=== PATIENT | female | born 1995 | race Caucasian/White ===

== ENCOUNTER 2023-05-18 18:30 | Emergency (ER) | payer OTHER, SELFPAY ==
[2023-05-18 18:35] VITALS: BP 130/85; PULSE 97; RESP 15; TEMP 37.2; O2SAT 98
--- NOTE | 2023-05-18 18:48 | ED_ITS ---
HPI - General Adult General Chief complaint: Nausea/Vomiting/Diarrhea Stated complaint: NAUSEA AND VOMITTING, LETHARGY Time Seen by Provider: 05/18/23 18:40 Source: patient Mode of arrival: walk-in Limitations: no limitations History of Present Illness HPI narrative: 27 year old female presents to the ED for cough, sinus congestion/drainage, fatigue, N/V. Onset was a few days ago. Denies fever, SOB, diarrhea, urinary sx. She has hx GERD. She has been out of her omeprazole for the past 2 months. Denies chance of . Reports two episodes of emesis today. Related Data Previous Rx's Medication Instructions Recorded benzonatate 200 mg capsule 200 mg PO TID PRN cough #21 caps 05/18/23 omeprazole 20 mg capsule,delayed 20 mg PO DAILY #14 caps 05/18/23 release ondansetron 4 mg disintegrating 4 mg PO Q8H PRN nausea and 05/18/23 tablet vomiting 4 days #16 tabs Allergies Allergy/AdvReac Type Severity Reaction Status Date / Time No Known Drug Allergies Allergy Verified 05/18/23 18:38 Review of Systems ROS Constitutional Denies: fever or chills Ears, nose, mouth, and throat Reports: nasal discharge and nasal congestion; Denies: throat pain, neck pain, throat swelling, difficulty swallowing, ear pain or ear discharge Cardiovascular Denies: chest pain Respiratory Reports: cough; Denies: shortness of breath Gastrointestinal Reports: nausea, vomiting and heartburn; Denies: abdominal pain or diarrhea Musculoskeletal Denies: back pain or neck pain Integumentary/Breast Denies: rash Neurological Denies: headache PFSH PFSH Social History Smoking status: Current every day smoker Exam Constitutional Vital Signs, click to edit/add: Last Vital Signs Temp 98.9 F 05/18/23 18:35 Pulse 57 L 05/18/23 20:24 Resp 15 05/18/23 20:24 BP 118/65 05/18/23 20:24 Pulse Ox 99 05/18/23 20:24 O2 Del Method Room Air 05/18/23 20:24 Common normals: no apparent distress and oriented x3 General appearance: cooperative; not in distress HENMT Common normals: normocephalic Nose: external nose normal and nasal discharge External ear: external ears normal External auditory canal: EACs normal Tympanic membrane: TMs normal bilaterally Mouth: lip normal and tongue normal; no muffled voice Throat: uvula midline and postnasal drainage Eye Common normals: conjunctivae normal and no scleral icterus Neck & C-Spine Common normals: supple Chest Chest: symmetrical chest wall rise Respiratory Common normals: normal respiratory effort Effort & inspection: able to speak in complete sentences and symmetric chest movement Cardio Common normals: regular rate and regular rhythm GI Common normals: Normal to inspection, nondistended, normoactive bowel sounds present, soft to palpation and non-tender Auscultation: normoactive bowel sounds Neuro Common normals: oriented x3 Sensorium/orientation: awake and alert Speech: speech normal Gait (neuro): normal gait Course Vital Signs Vital signs: Vital Signs Temperature 98.9 F 05/18/23 18:35 Pulse Rate 97 H 05/18/23 18:35 Respiratory Rate 15 05/18/23 18:35 Blood Pressure 130/85 05/18/23 18:35 Pulse Oximetry 98 05/18/23 18:35 Oxygen Delivery Method Room Air 05/18/23 18:35 Temperature 98.9 F 05/18/23 18:35 Pulse Rate 57 L 05/18/23 20:24 Respiratory Rate 15 05/18/23 20:24 Blood Pressure 118/65 05/18/23 20:24 Pulse Oximetry 99 05/18/23 20:24 Oxygen Delivery Method Room Air 05/18/23 20:24 Medical Decision Making MDM Narrative Medical decision making narrative: Covid-19 was negative. Urinalysis was unremarkable. She reported she has been out of her omeprazole for the past 2 months. Prescriptions were provided for omeprazole, Zofran, and tessalon perles. Follow up with pcp for a recheck, further evaluation and treatment. Return precautions were discussed. Medical Records Medical records reviewed: Yes I reviewed the patient's medical records Lab Data Lab results reviewed: Yes I reviewed the patient's lab results Labs: Lab Results 05/18/23 Range/Units 19:13 Urine Color Yellow (YELLOW) Urine Clarity Clear (CLEAR) Urine pH 6.0 (5.0-9.0) Ur Specific [place] >=1.030 A (1.005-1.025) Urine Protein Negative (NEG/TRACE) mg/dL Urine Glucose (UA) Negative (NEGATIVE) mg/dL Urine Ketones 15 A (NEGATIVE) mg/dL Urine Occult Blood Negative (NEGATIVE) Urine Nitrite Negative (NEGATIVE) Urine Bilirubin Small A (NEGATIVE) Urine Urobilinogen 0.2 (0.2-1.0) EU/dL Ur Leukocyte Esterase Trace A (NEGATIVE) Urine RBC 2-5 A (0-2) #/HPF Urine WBC 2-5 A (NONE SEEN) #/HPF Ur Squamous Epith Cells Moderate A (NONE/RARE) #/LPF Urine Crystals None seen (None Seen) #/HPF Urine Bacteria Trace A (NONE SEEN) #/HPF Urine Casts None seen (NONE SEEN) #/LPF Urine Mucus Moderate A (NONE SEEN) Ur Culture Indicated? No Urine HCG, Qual Negative (NEGATIVE) SARS-CoV-2 (PCR) Negative (NEGATIVE) Discharge Plan Discharge Chief Complaint: Nausea/Vomiting/Diarrhea Clinical Impression: Encounter for medication refill, Viral illness Patient Disposition: Home, Self-Care Time of Disposition Decision: 20:16 Condition: Good Mode of Transportation: Private Vehicle Prescriptions / Home Meds: New ondansetron 4 mg tablet,disintegrating 4 mg PO Q8H PRN (Reason: nausea and vomiting) 4 Days Qty: 16 0RF omeprazole 20 mg capsule,delayed release(DR/EC) 20 mg PO DAILY Qty: 14 0RF benzonatate 200 mg capsule 200 mg PO TID PRN (Reason: cough) Qty: 21 0RF Instructions: Upper Respiratory Infection (ED), GERD (Gastroesophageal Reflux Disease) (ED), Viral Syndrome (ED) Additional Instructions: Follow up with your primary care provider within the next few days for a recheck. Return to the ER if your condition worsens. Stand Alone Forms: Portal Instructions Referrals: Physician,Non-Staff, MD [Primary Care Provider] - As soon as possible Discharge Date/Time: 05/18/23 20:25
[2023-05-18] MEDS: lidocaine HCL 15 ML, MAG HYDROX/ALUMINUM HYD/SIMETH 30 ML, HYOSCYAMINE SULFATE 0.25 MG PO (18:56)
[2023-05-18] MEDS: ONDANSETRON 4 MG RAPDIS TABLET SL (18:58)
[2023-05-18 19:23] LABS: Bilirubin Urine SMALL (NEGATIVE); Blood Urine NEGATIVE (NEGATIVE); Clarity Urine CLEAR (CLEAR); Color Urine YELLOW (YELLOW); Glucose Urine UA NEGATIVE (NEGATIVE); Ketones Urine 15 mg/dL (NEGATIVE); Leukocyte Esterase Urine TRACE (NEGATIVE); Nitrite Urine NEGATIVE (NEGATIVE); Protein Urine NEGATIVE (NEG/TRACE); Specific Gravity Urine >=1.030 (1.005-1.025); Urobilinogen Urine 0.2 EU/dL (0.2-1.0)
[2023-05-18 19:30] LABS: Urine Microscopic Indicated YES
[2023-05-18 19:47] LABS: Bacteria Urine TRACE #/HPF (NONE SEEN)
[2023-05-18 19:48] LABS: Cast Seen? NONE SEEN #/LPF (NONE SEEN); Crystals Seen? None Seen #/HPF (None Seen); Mucus Urine MODERATE (NONE SEEN); Squamous Epithelial Cell Urine MODERATE #/LPF (NONE/RARE); Urine Culture Indicated NO
[2023-05-18 19:57] LABS: SARS-CoV-2 Ag NEGATIVE (NEGATIVE)
[2023-05-18 20:07] LABS: HCG Qualitative Urine* NEGATIVE (NEGATIVE)
[2023-05-18 20:24] VITALS: BP 118/65; PULSE 57; RESP 15; O2SAT 99
[2023-05-20 15:56] LABS: SARS-CoV-2 NAA INVALID (NOT DETECTE)
== END 2023-05-18 20:25 | disposition home or self-care (01) ==
PROVIDERS: Nurse Practitioner Family; Emergency Provider Emergency Medicine
DX: B34.9 Viral infection, unspecified (principal); Z76.0 Encounter for issue of repeat prescription; Z79.899 Other long term (current) drug therapy; K21.9 Gastro-esophageal reflux disease without esophagitis; F17.210 Nicotine dependence, cigarettes, uncomplicated; Z20.822 Contact with and (suspected) exposure to COVID-19
CPT/HCPCS: 81001; 84703; 87635; 87811; 99284

== ENCOUNTER 2024-01-14 22:31 | Emergency (ER) | payer OTHER, SELFPAY ==
--- OUTSIDE RECORDS SUMMARY | 2024-01-14 22:36 | XMS_ITS | CCD ---
Author Organization [facility] Inform ion Partnership [facility] Care Team Providers Care Cloth Doffer Name Role Phone Cricket Desir Unavailable DivinaKina velazquez Unavailable Courtney Gibbons Unavailable Kalani Pardo Attending Unavailable REQUEST, DR LI LISTED Primary Care Unavaila ble ELIJAH, DR KAYLEIGH Crowder Admitting Unavailabl e REINECK, DR KAYLEIGH Crowder Attending Unavailabl e REINECK, DR KAYLEIGH Crowder Consulting Unavailabl e REQUESTDR LI LISTED Primary Care Unavaila ble ELIJAH, DR KAYLEIGH Crowder Admitting Unavailabl e REINECK, DR KAYLEIGH Crowder Attending Unavailabl e REINECK, DR KAYLEIGH Crowder Consulting Unavailabl e Allergies Allergy Classification Reported Allergen(s) Allergy Type Date of Onset Reaction(s) Facility (5 sources) almond allergenic extract Drug Allergy Unknown [facility] Other Medications Current Medications Medication Drug Class(es) Dates Sig (Normalized) Sig (Original) cephalexin 500 mg oral capsule (1 source) Cephalosporin Antibacterial Start: 06-04-2022 take 1 capsule by mouth every eight hours Cephalexin 500 MG 1 capsule Orally three times a day for 10 day(s) May, Active cetirizine hydrochloride 10 mg oral tablet (1 source) Histamine-1 Receptor Antagonist Start: 03-16-2022 take 1 tablet by mouth once daily Cetirizine HCl 10 MG 1 tablet Orally Once a day for 30 day(s) Feb, Active Etonogestrel (5 sources) Progestin Nexplanon Active hydrocortisone 10 mg/ml / neomycin 3.5 mg/ml / polymyxin b [id number] unt/ml otic suspension (1 source) Aminoglycoside Antibacterial, Polymyxin-class Antibacterial, Corticosteroid Start: 06-04-2022 Neomycin-Polymyx in-HC [id number] 3 drps right ear Three times a day for 7 days May, Active hydrOXYzine hydrochloride 10 mg oral tablet (3 sources) Antihistamine Start: 06-21-2022 take 1 tablet by mouth twice daily as needed hydrOXYzine HCl 10 MG 1 tablet as needed Orally twice daily for 30 day(s) May, Active omeprazole 20 mg delayed release oral capsule (3 sources) Proton Pump Inhibitor Start: 06-21-2022 take 1 capsule by mouth once daily Omeprazole 20 MG 1 capsule 30 minutes before morning meal Orally Once a day May, Active ondansetron 4 mg oral tablet (1 source) Serotonin-3 Receptor Antagonist Start: 03-16-2022 take 1 tablet by mouth every twelve hours Ondansetron HCl 4 MG 1 tablet Orally BID for 10 day(s) Feb, Active 24 hr divalproex sodium 250 mg extended release oral tablet (2 sources) Mood Stabilizer, Anti-epileptic Agent Start: 08-09-2022 take 1 tablet by mouth every twenty-four hours Divalproex Sodium ER 250 MG 1 tablet Orally Once a day for 30 day(s) Jul, Active 24 hr venlafaxine 75 mg extended release oral capsule (3 sources) Serotonin and Norepinephrine Reuptake Inhibitor Start: 06-21-2022 take 1 capsule by mouth every twenty-four hours Effexor XR 75 MG 1 capsule with food Orally Once a day for 30 day(s) May, Active Start: 06-21-2022 take 1 capsule by [facility] every twenty-four hours Effexor XR 37.5 MG 1 capsule with food Orally Once a day for 30 day(s) May, Active Completed/Discontinued Medications Medication Drug Class(es) Dates Sig (Normalized) Sig (Original) amoxicillin 875 mg oral tablet (1 source) Penicillin-class Antibacterial Start: 02-19-2020 take 1 tablet by mouth every twelve hours Amoxicillin 875 MG 1 tablet Orally every 12 hrs for 7 days Jan, Not-Taking Cortisporin 3.3-3-10-0.5 mg/ml (1 source) Start: 07-29-2020 Cortisporin 3.3-3-10-0.5 mg/ml 4 drops into affected ear Otic Three times a day for 5 days Jul, Not-Taking fluconazole 150 mg oral tablet (1 source) Azole Antifungal Start: 07-29-2020 Diflucan 150 MG 1 tablet Orally take 1 tablet now then 1 tablet in 7 days for 2 days Jul, Not-Taking methylPREDNISolone 4 mg oral tablet (1 source) Corticosteroid Start: 07-29-2020 Medrol (Gavino) 4 MG half of daily dose in the morning with food and the rest at night with food Orally Jul, Not-Taking naproxen 500 mg oral tablet (1 source) Nonsteroidal Anti-inflammatory Drug Start: 02-19-2020 take 1 tablet by mouth every twelve hours at mealtime as needed Naproxen 500 MG 1 tablet with food or milk as needed Orally every 12 hrs for 10 days Jan, Not-Taking Problems Active Problems Problem Classification Problem Date Documented Date Episodic/Chronic Anxiety disorders (10 sources) Generalized anxiety disorder; Translations: [Generalized anxiety disorder] Chronic Esophageal disorders (5 sources) Gastroesophageal reflux disease without esophagitis; Translations: [Gastro-esophageal reflux disease without esophagitis] Chronic Fever of unknown origin (1 source) Fever, unspecified; Translations: [FEVER UNSPECIFIED] Onset: 11-08-2022 Episodic Other ear and sense organ disorders (1 source) Unspecified otitis externa, right ear; Translations: [UNS OTITIS EXTERNA RT EAR] Onset: 11-08-2022 Chronic Other ear and sense organ disorders (1 source) Unspecified acute noninfective otitis externa, right ear Episodic Other ear and sense organ disorders (3 sources) Otalgia, right ear; Translations: [OTALGIA RIGHT EAR] Onset: 11-06-2022 Episodic Other upper respiratory disease (5 sources) Seasonal allergic rhinitis; Translations: [Other seasonal allergic rhinitis] Chronic Other upper respiratory disease (1 source) Other seasonal allergic rhinitis Onset: 03-16-2022 Resolved: 03-16-2022 Chronic Otitis media and related conditions (1 source) Otitis media, unspecified, right ear Episodic Substance-related disorders (1 source) Nicotine dependence, cigarettes, uncomplicated; Translations: [NICOTINE DEPEND CIGARETTES UNCOMP] Onset: 11-24-2021 Chronic Past or Other Problems Problem Classification Problem Date Documented Da te Episodic/Chronic Immunizations and screening for infectious disease (1 source) Contact with and (suspected) exposure to unspecified communicable disease Onset: 03-16-2022 Resolved: 03-16-2022 Episodic Nausea and vomiting (1 source) Nausea Onset: 03-16-2022 Resolved: 03-16-2022 Episodic Other skin disorders (3 sources) Localized swelling, mass and lump, head; Translations: [LOCALIZED SWELLING MASS AND LUMP HEAD] Onset: 11-23-2021 Episodic Other skin disorders (1 source) Sebaceous cyst; Translations: [SEBACEOUS CYST] Onset: 11-24-2021 Episodic Results Test Name Value Interpretation Reference Range Facil ity XR toe LT 5th digiton 2020 XR toe LT 5th digit [facility] [place] [address] [place] [address] XRay Report Signed Patient: Ashley Moser MR#: [id number] : 1995 Acct:[id number] Age/Sex: 25 / F ADM Date: 10/29/20 Loc: XDUCLY Room: Type: [facility] Attending Dr: Kathleen Richey APRN, SECOND OPERATOR-C Ordering Provider: Kathleen Richey APRN Date of Service: 10/29/20 XR/XR toe LT 5th digit: Injury of left foot, initial encounter Copies to: Kathleen Richey APRN CLINICAL HISTORY: Injured left foot this morning, stepping over a baby gate and patient struck her foot on the gate. Pain and bruising over the little toe. XR toe LT 5th digit COMPARISON: None FINDINGS: AP, lateral and oblique views of the left little toe were obtained. There is a nondisplaced, slightly buckled fracture to the distal diametaphysis of the proximal phalanx of the little toe. The remaining bony structures are intact. Soft tissue swelling is shown at the base of the little toe. No radiopaque foreign body is noted. XR/XR toe LT 5th digit IMPRESSION: A NONDISPLACED FRACTURE AT THE DISTAL PORTION OF THE PROXIMAL PHALANX OF THE LITTLE TOE. Impression dictated by: Kane Gregorio M.D.10/29/2020 12:18 PM Dictation Location: [place] [address] Transcribed By: [facility] 10/29/20 1218 Dictated By: Kane Gregorio MD 10/29/20 1214 Signed By: 10/29/20 1218 [facility] Vital Signs Date Time Vital Sign Value Performing Clinician Facility 08-09-2022 14:00-0500 Body height 165.1 cm Courtney Schmidtault Other [facility] Other 08-09-2022 14:00-0500 Body mass index (BMI) [Ratio] 27.95 kg/m2 Courtney Edwige Other [facility] Other 08-09-2022 14:00-0500 Body temperature 97.7 [degF] Courtney Edwige Other [facility] Other 08-09-2022 14:00-0500 Body weight 76.2 kg Courtney Edwige Other [facility] Other 08-09-2022 14:00-0500 Diastolic blood pressure 72 mm[Hg] Courtney Edwige Other [facility] Other 08-09-2022 14:00-0500 Respiratory rate 18 /min Courtney Edwige Other [facility] Other 08-09-2022 14:00-0500 SaO2% (BldA) [Mass fraction] 98 % Courtney Edwige Other [facility] Other 08-09-2022 14:00-0500 Systolic blood pressure 117 mm[Hg] Courtney Edwige Other [facility] Other 07-19-2022 16:00-0500 Body height 165.1 cm Courtney Edwige Other [facility] Other 07-19-2022 16:00-0500 Body mass index (BMI) [Ratio] 27.95 kg/m2 Courtney Gibbons Other [facility] Other 07-19-2022 16:00-0500 Body temperature 97.7 [degF] Courtney Gibbons Other [facility] Other 07-19-2022 16:00-0500 Body weight 76.2 kg Courtney Gibbons Other [facility] Other 07-19-2022 16:00-0500 Diastolic blood pressure 68 mm[Hg] Courtney Gibbons Other [facility] Other 07-19-2022 16:00-0500 Respiratory rate 18 /min Courtney Gibbons Other [facility] Other 07-19-2022 16:00-0500 SaO2% (BldA) [Mass fraction] 99 % Courtney Gibbons Other [facility] Other 07-19-2022 16:00-0500 Systolic blood pressure 127 mm[Hg] Courtney Gibbons Other [facility] Other 06-21-2022 12:30-0500 Body height 165.1 cm Courtney Gibbons Other [facility] Other 06-21-2022 12:30-0500 Body mass index (BMI) [Ratio] 27.79 kg/m2 Courtney Gibbons Other [facility] Other 06-21-2022 12:30-0500 Body temperature 97.1 [degF] Courtney Schmidtault Other [facility] Other 06-21-2022 12:30-0500 Body weight 75.75 kg Courtney Gibbons Other [facility] Other 06-21-2022 12:30-0500 Diastolic blood pressure 84 mm[Hg] Courtney Gibbons Other [facility] Other 06-21-2022 12:30-0500 Respiratory rate 18 /min Courtney Gibbons Other [facility] Other 06-21-2022 12:30-0500 SaO2% (BldA) [Mass fraction] 97 % Courtney Gibbons Other [facility] Other 06-21-2022 12:30-0500 Systolic blood pressure 131 mm[Hg] Courtney Gibbons Other [facility] Other 06-04-2022 14:35-0500 Body height 165.1 cm Kina Gallegomond Other [facility] Other 06-04-2022 14:35-0500 Body mass index (BMI) [Ratio] 28.12 kg/m2 Kina Murcia Other [facility] Other 06-04-2022 14:35-0500 Body temperature 98 [degF] Kina Divina Other [facility] Other 06-04-2022 14:35-0500 Body weight 76.66 kg Kina Divina Other [facility] Other 06-04-2022 14:35-0500 Diastolic blood pressure 81 mm[Hg] Kina Murcia Other [facility] Other 06-04-2022 14:35-0500 Respiratory rate 18 /min Kina Murcia Other [facility] Other 06-04-2022 14:35-0500 SaO2% (BldA) [Mass fraction] 100 % Kina Murcia Other [facility] Other 06-04-2022 14:35-0500 Systolic blood pressure 125 mm[Hg] Kina Murcia Other [facility] Other 03-16-2022 14:15-0400 Body height 165.1 cm Cricket Desir Other [facility] Other 03-16-2022 14:15-0400 Body mass index (BMI) [Ratio] 29.12 kg/m2 Cricket Desir Other [facility] Other 03-16-2022 14:15-0400 Body temperature 99.1 [degF] Cricket Desir Other [facility] Other 03-16-2022 14:15-0400 Body weight 79.38 kg Cricket Desir Other [facility] Other 03-16-2022 14:15-0400 Respiratory rate 18 /min Cricket Desir Other [facility] Other 03-16-2022 14:15-0400 SaO2% (BldA) [Mass fraction] 97 % Cricket Desir Other [facility] Other Encounters Encounter Date Encounter Type Care Provider Facility Start: 11-06-2022 End: 11-06-2022 ambulatory Kalani Pardo Facility:[facility] Start: 08-09-2022 End: 08-09-2022 ambulatory Courtney Gibbons Other [facility] Other Start: 08-09-2022 Office outpatient visit 15 minutes Courtney Edwige [facility] Start: 07-19-2022 End: 07-19-2022 ambulatory Courtney Edwige Other [facility] Other Start: 07-19-2022 Office outpatient visit 15 minutes Courtney Edwige [facility] Start: 06-21-2022 End: 06-21-2022 ambulatory Courtneymarylu Gibbons Other [facility] Other Start: 06-21-2022 Office outpatient visit 15 minutes Courtney Edwige [facility] Start: 06-04-2022 End: 06-04-2022 ambulatory Kina Divina Other [facility] Other Start: 06-04-2022 Office outpatient visit 15 minutes Kina Murcia [facility] Start: 03-16-2022 End: 03-16-2022 ambulatory Cricket Desir Other [facility] Other Start: 03-16-2022 Office outpatient visit 15 minutes Cricket Desir [facility] Start: 11-23-2021 End: 11-23-[address] NONE LISTED REQUEST Facility: Payers Date Payer Category Payer Medicaid [id number] 2. [id number] 2017 Private Health Insurance 2017 Unknown [id number] 1995 Unknown [id number] 1996 Unknown [id number] 1974 Unknown [id number] 1959 Self-pay Social History Date Type Detail Facility Unknown if ever smoked [facility] Other Sex Assigned At Sex Assigned At Bir th [facility] Other Evaluation note 08-09-2022 Note Date & Type Note Facility 08-09-2022 Evaluation note Encounter Date Diagnosis Assessment Notes Jul, MIRA (generalize d anxiety disorder) (ICD-10 - F41.1) increased medication as discussed. Jul, PTSD (post-traum atic stress disorder) (ICD-10 - F43.10) Start taking medication tonight. FOllow up in 1 month. [facility] Other Evaluation note 07-19-2022 Note Date & Type Note Facility 07-19-2022 Evaluation note Encounter Date Diagnosis Assessment Notes Jun, MIRA (generalized anxiety disorder) (ICD-10 - F41.1) COntinue medication at this time. Jun, Gastroesophageal reflux disease without esophagitis (ICD-10 - K21.9) Jun, PTSD (post-traumatic stress disorder) (ICD-10 - F43.10) Start this medication tonight. Follow up in 4-6 weeks to see how you are doing [facility] Other Evaluation note 06-21-2022 Note Date & Type Note Facility 06-21-2022 Evaluation note Encounter Date Diagnosis Assessment Notes May, Gastroesophageal reflux disease without esophagitis (ICD-10 - K21.9) Will start with this medication since you are unsure what you previously took. When you follow up, we will see how it is working. May, MIRA (generalized anxiety disorder) (ICD-10 - F41.1) Today during the appointment we discussed depression and emotions. We talked about treatment options that include both counseling and medication interventions. When we first start treatment, it is common to have to be seen more frequently as we figure out the best treatment regimen that fits you as an individual. We will be able to space out appointments more once we find what works for you. If at any time you feel like your symptoms have increased in severity or you want to hurt yourself, please never hesitate to contact us and we will get you in to be seen. Also always know the [facility] Emergency Number is 24 hours a day available, even on holidays there is someone you can reach out to. Also we will check other labs yearly to screen for other health issues. Please remember we are a team and your opinion is very important in all of your healthcare decisions [facility] Other Evaluation note 06-04-2022 Note Date & Type Note Facility 06-04-2022 Evaluation note Encounter Date Diagnosis Assessment Notes May, Right otitis media, unspecified otitis media type (ICD-10 - H66.91) Middle ear infection: adult home care material was printed Drink plenty fluids, get plenty of rest. Take the antibiotic as prescribed until gone. Use eardrops as prescribed. Take Tylenol or Motrin as needed for aches pains or fevers. Follow-up with your family physician if no improvement in 2 to 3 days. May, Acute otitis externa of right ear, unspecified type (ICD-10 - H60.501) [facility] Other Evaluation note 03-16-2022 Note Date & Type Note Facility 03-16-2022 Evaluation note Encounter Date Diagnosis Assessment Notes Feb, Contact with and (suspected) exposure to unspecified communicable disease (ICD-10 - Z20.9) 26 y.o. female seen today for a three day onset of symptoms of fatigue, malaise, rhinorrea, mild sore throat and nausea. She reports that her daughter and grandmother have had similar symptoms and tested negative for COVID. She is unsure of any other possible exposures. Due to symptoms a COVID PCR test is performed in the office today. Results are negative and this was reviewed with the patient. She mentioned how she has noticed increased rhinorrea, especially at work where there is an increase in dust. I am suspicious of allergic rhinnitis that has lead to increased PND and nausea. Start Cetirizine 10mg orally daily. Start Ondansetron 4mg orally prn for nausea. Advised pt to hydrate well. May include electrolyte solution. May use acetaminophen and or ibuprofen for fever, BURNETT, and body aches. Advised to return with increased symptoms or if experiences Fever, chills, N/V/D. She acknowledges understanding and agrees. Employer letter and COVID results were signed and handed to pt. Feb, Seasonal allergic rhinitis, unspecified trigger (ICD-10 - J30.2) Feb, Nausea (ICD-10 - R11.0) [facility] Other History general Narrative - Reported Note Date & Type Note Facility History general Narrative - Reported Type Surgical History tonsillectomy [facility] Other History general Narrative - Reported Note Date & Type Note Facility History general Narrative - Reported Type Medical History acid reflux Surgical History tonsillectomy [facility] Other Summary Purpose Family History No Family History Records FoundNo Family History Records FoundNo Family History Records Found Advance Directives No Advanced Directives Records FoundNo Advanced Directives Records FoundNo Advanced Directives Records Found Additional Source Comments INFORMATION SOURCE (unrecogn ized section and content) DATE CREATED AUTHOR 08/08/[address] [facility] DATE CREATED AUTHOR AUTHOR'S ORGANIZ ATION 11/07/2022 [facility] DATE CREATED AUTHOR AUTHOR'S ORGANIZ ATION 11/09/2022 [facility] REASON FOR VISIT (unrecogniz ed section and content) RED ESCAPE, N/V DIARRHEARED WRAY ESCAPE RIGHT EAR [facility], [facility] Establish PrimaryFOLLOW UP MIRA, José AnxietyF/U MEDS, [facility] Anxiety FOR RECORDS PERTAINING TO PATIENTS WHO ARE OR HAVE BEEN ENROLLED IN A CHEMICAL DEPENDENCY/SUBSTANCEABUSE PROGRAM, SOME INFORMATION MAY BE OMITTED. This clinical summary was aggregated from multiple sources. Caution should be exercised in using it in the provision of clinical care. This summary normalizes information from multiple sources, and as a consequence, information in this document may materially change the coding, format and clinical context of patient data. In addition, data may be omitted in some cases. CLINICAL DECISIONS SHOULD BE BASED ON THE PRIMARY CLINICAL RECORDS. [facility] provides no warranty or guarantee of the accuracy or completeness of information in this document.
[2024-01-14 22:46] VITALS: BP 124/80; PULSE 102; TEMP 36.6; O2SAT 98; BMI 29.1
--- NOTE | 2024-01-14 22:50 | PC.NURSE ---
Injury to right hand, pain, slight swelling and bruising present. Ice pack applied.
--- NOTE | 2024-01-14 22:52 | XR_ITS ---
The [address] [address] Patient Name: YAIR GARCIA MRN: [id number] date: 1995 Sex: F Assigned Patient Location: ER Current Patient Location: Accession/Order Number: [id number] Exam Date: 01/14/2024 23:35 Report Date: 01/15/2024 00:42 At the request of: ZANDRA LAKE Procedure: XR hand RT min 3V EXAM: XR hand RT min 3V HISTORY: injury COMPARISON: None. TECHNIQUE: 3 views of the right hand were obtained. FINDINGS: No acute fracture or dislocation is seen. The joint spaces are preserved. XR/XR hand RT min 3V IMPRESSION: 1. No acute fracture or dislocation of the right hand is seen. If pain persists, repeat radiographs are recommended in 7-10 days. Electronically authenticated by: Gaby VENEGAS Date: 01/15/2024 00:42
[2024-01-14 23:12] LABS: HCG Qualitative Urine* NEGATIVE (NEGATIVE); Internal Control Within Normal Limits
--- NOTE | 2024-01-14 23:21 | ED_ITS ---
HPI HPI - Extremity Injury (Upper) General Chief Complaint: Extremity Injury, Upper Stated Complaint: UPPER EXTREMINTY INJURY, RT Time Seen by Provider: 01/14/24 23:19 Source: patient Mode of arrival: walk-in Limitations: no limitations History of Present Illness HPI narrative: loss her balance and fell scraping her tight thigh on thorn bushes and struck right hand against the house. Presents because of fingers are hurting. No weakness. Decreased ROM due to pain Related Data Previous Rx's ?Medication ?Instructions ?Recorded benzonatate 200 mg capsule 200 mg PO TID PRN cough #21 caps 05/18/23 omeprazole 20 mg capsule,delayed 20 mg PO DAILY #14 caps 05/18/23 release ondansetron 4 mg disintegrating 4 mg PO Q8H PRN nausea and 05/18/23 tablet vomiting 4 days #16 tabs Allergies Allergy/AdvReac Type Severity Reaction Status Date / Time No Known Drug Allergies Allergy Verified 01/14/24 22:46 Opioid HPI Opioid Management Most Recent Pain and Opioid Data: No Data to Display Review of Systems ROS Status of ROS 10 or more systems reviewed and unremark able except as noted in history and below [facility] Social History Smoking status: Current every day smoker Exam Constitutional Vital Signs, click to edit/add: Last Vital Signs Temp 97.9 F 01/14/24 22:46 Pulse 102 H 01/14/24 22:46 Resp 18 01/14/24 22:46 BP 124/80 01/14/24 22:46 Pulse Ox 98 01/14/24 22:46 O2 Del Method Room Air 01/14/24 22:46 Common normals: no apparent distress, average body habitus, oriented x3, no limitations, healthy appearing, alert and well nourished [facility] Common normals: normocephalic and head/scalp atraumatic Eye Common normals: PERRL, EOMs intact bilaterally and conjunctivae normal Respiratory Common normals: normal respiratory effort, no retractions and no use of accessory muscles Cardio Common normals: regular rate, regular rhythm, S1 normal heart sound and S2 normal heart sound Extremity Other: multiple superficial abrasions right inner thigh. no swelling or bleeding/drainage mild swelling of several fingers right hand. thumb normal. right wrist unremarkable Neuro Common normals: oriented x3, CN's II-XII intact bilaterally, moves all extremities and no focal motor deficits Psych Appearance: grossly normal Course Vital Signs Vital signs: Vital Signs Temperature 97.9 F 01/14/24 22:46 Pulse Rate 102 H 01/14/24 22:46 Respiratory Rate 18 01/14/24 22:46 Blood Pressure 124/80 01/14/24 22:46 Pulse Oximetry 98 01/14/24 22:46 Oxygen Delivery Method Room Air 01/14/24 22:46 Temperature 97.9 F 01/14/24 22:46 Pulse Rate 102 H 01/14/24 22:46 Respiratory Rate 18 01/14/24 22:46 Blood Pressure 124/80 01/14/24 22:46 Pulse Oximetry 98 01/14/24 22:46 Oxygen Delivery Method Room Air 01/14/24 22:46 MDM - Extremity Injury (Upper) MDM Narrative Medical decision making narrative: patient fell sustained multiple linear abrasions right thigh from bushes by the house and she struck her hand against the wall. Has swelling and faint ecchymo sis of her fingers. N/V intact. xray neg. Patient placed in a splint and discharged home Lab Data Labs: Lab Results 01/14/24 Range/Units 23:06 Urine HCG, Qual Negative (NEGATIVE) Discharge Plan Discharge Stand Alone Forms: Portal Instructions Chief Complaint: Extremity Injury, Upper Clinical Impression: Contusion of dorsum of right hand, Abrasion of right thigh Patient Disposition: Home, Self-Care Prescriptions / Home Meds: No Action ondansetron 4 mg tablet,disintegrating 4 mg PO Q8H PRN (Reason: nausea and vomiting) 4 Days Qty: 16 0RF omeprazole 20 mg capsule,delayed release(DR/EC) 20 mg PO DAILY Qty: 14 0RF benzonatate 200 mg capsule 200 mg PO TID PRN (Reason: cough) Qty: 21 0RF Print Language: German Instructions: Contusion in Adults (ED), Abrasion (ED) Additional Instructions: use ibuprofen for pain and follow up with your doctor next week for recheck. Keep hand elevated Referrals: Physician,Non-Staff, MD [Primary Care Provider] - 1 week Procedures ED Procedure Instructions Procedures Procedures: volar splint right wrist/fingers with fiber glass material. Tolerated well. N/V post procedure WNL
== END 2024-01-15 00:20 | disposition home or self-care (01) ==
PROVIDERS: Emergency Provider Internal Medicine
DX: S60.221A Contusion of right hand, initial encounter (principal); S70.311A Abrasion, right thigh, initial encounter; F17.200 Nicotine dependence, unspecified, uncomplicated; W19.XXXA Unspecified fall, initial encounter
CPT/HCPCS: 73130; 84703; 99284

== ENCOUNTER 2024-05-10 10:52 | Emergency (ER) | payer OTHER, SELFPAY ==
[2024-05-10 10:58] VITALS: BP 144/96; PULSE 88; TEMP 36.8; O2SAT 98; BMI 34.9
--- OUTSIDE RECORDS SUMMARY | 2024-05-10 11:24 | XMS_ITS | CCD ---
Author Organization [facility] Care Team Providers Care Manager Simulation Name Role Phone Cricket Desir Unavailable DivinaKina velazquez Unavailable Courtney Gibbons Unavailable REQUEST, NONE LISTED Primary Care Unavaila ble SAMANECK, DR KAYLEIGH Crowder Admitting Unavailabl e REINECK, DR KAYLEIGH Crowder Attending Unavailabl e REINECK, DR KAYLEIGH Crowder Consulting Unavailabl e REQUEST, DR LI LISTED Primary Care Unavaila ble SAMANECK, DR KAYLEIGH Crowder Admitting Unavailabl e REINECK, DR KAYLEIGH Crowder Attending Unavailabl e REINECK, DR KAYLEIGH Crowder Consulting Unavailabl e NONE, XXXX Primary Care Physician Unavailab Nicholas Montgomery Attending Unavailable Yon Finch Attending Unavailable Yon Finch Admitting Unavailable NO FAMILY, PHYSICIAN Primary Care Unavailable NO FAMILY, PHYSICIAN Primary Care Provider Unava ilable DO Yon Finch Attending Provider [phone] Allergies Allergy Classification Reported Allergen(s) Allergy Type Date of Onset Reaction(s) Facility (5 sources) almond allergenic extract Drug Allergy Unknown [employer] Other (1 source) No Known Medication Allergies; Translations: [No Known Medication Allergies] Propensity to adverse reactions (disorder) [facility] Repository (1 source) almond allergenic extract Drug Allergy [address] [place] [address] Repository Medications Current Medications Medication Drug Class(es) Dates Sig (Normalized) Sig (Original) acetaminophen 500 mg oral tablet (3 sources) Start: 03-28-2024 take 1000 mg by mouth every eight hours Acetaminophen Active 1000 MG PO Q8H 180 30 March 28, 2024 12:00am cephalexin 500 mg oral capsule (1 source) Cephalosporin Antibacterial Start: 11-11-2022 take 1 capsule by mouth every eight [...] / neomycin 3.5 mg/ml / polymyxin b [id number] unt/ml otic suspension (1 source) Aminoglycoside Antibacterial, Polymyxin-class Antibacterial, Corticosteroid Start: 06-04-2022 Neomycin-Polymyxin -HC [id number] 3 drps right ear Three times a day for 7 days May, Active hydrOXYzine hydrochloride 25 mg oral tablet (6 sources) Antihistamine Start: 03-28-2024 take 25 mg by mouth twice daily Hydroxyzine Hcl Active 25 MG PO Twice daily March 28, 2024 12:00am Start: 06-21-2022 [facility] hydrOXYzine HCl 10 MG 1 tablet as needed Orally twice daily for 30 day(s) May, Active ibuprofen 600 mg oral tablet (3 sources) Nonsteroidal Anti-inflammatory Drug Start: 03-28-2024 take 600 mg by mouth every eight hours Ibuprofen Active 600 MG PO Q8H 90 30 March 28, 2024 12:00am omeprazole 10 mg delayed release oral capsule (6 sources) Proton Pump Inhibitor Start: 03-28-2024 take 10 mg by mouth once daily Omeprazole Active 10 MG PO Daily March 28, 2024 12:00am Start: 06-21-2022 take 1 capsule by mo [facility] once daily Omeprazole 20 MG 1 capsule 30 minutes before morning meal Orally Once a day May, Active ondansetron 4 mg oral tablet (1 source) Serotonin-3 Receptor Antagonist Start: 03-16-2022 take 1 tablet by mouth every twelve hours Ondansetron HCl 4 MG 1 tablet Orally BID for 10 day(s) Feb, Active traMADol hydrochloride 50 mg oral tablet (4 sources) Opioid Agonist Start: 03-28-2024 take 1 tablet by mouth every six hours Tramadol Active 50 MG PO Every 6 hours 30 March 28, 2024 12:00am dispense 30 (thirty) tablets diagnosis S62.306 Start: 03-22-2024 End: 03-25-2024 take 1 tablet by mouth every six hours as needed for pain traMADOL 50 mg Tab 50 mg = 1 tab(s), Oral, q6hr, PRN for pain, X 3 day(s), # 12 tab(s), Refills(s) 0, Pharmacy: [id number], 165, cm, 03/22/24 16:23:00 EDT, Height/Length Dosing, 89, kg, 03/22/24 16:23:00 EDT, Weight Dosing Start Date: 03/22/24 Stop Date: 03/25/24 Status: Ordered 24 hr divalproex sodium 250 mg extended [...] Active Start: 06-21-2022 take 1 capsule by [facility] every twenty-four hours Effexor XR 37.5 MG [...] unspecified; Translations: [FEVER UNSPECIFIED] Onset: 11-08-2022 Episodic Fracture of upper limb (10 sources) Closed fracture finger metacarpal ; Translations: [Unspecified fracture of unspecified metacarpal bone, initial encounter for closed fracture] Onset: 03-22-2024 Episodic Other ear and sense organ disorders [...] media, unspecified, right ear Episodic Substance-related disorders (2 sources) Nicotine dependence, cigarettes, uncomplicated; Translations: [Smoker] Onset: 11-24-2021 03-22-2024 Chronic Comment on above: Added secondary to d ocumentation in Social History. Superficial injury; contusion (1 source) Contusion of hand; Translations: [Contusion of unspecified hand, initial encounter] Onset: 03-22-2024 Episodic Past or Other Problems Problem Classification Problem [...] Value Interpretation Reference Range Facil ity XR hand RT min 3V*on 024 XR hand RT min 3V* [facility] [place] [facility] [address] [place] [address] XRay Report Signed Patient: Ashley Moser MR#: [id number] : 1995 Acct:[id number] Age/Sex: 28 / F ADM Date: 04/25/24 [place] [facility] [place]: Type: [facility] Attending Dr: Yon Finch DO Copies to: Yon Finch DO Ordering Provider: Yon Finch DO Date of Service: 04/25/24 XR/XR hand RT min 3V*: S62.306A - Unspecified fracture of fifth metacarpal bone,... 3 views RIGHT hand plain film COMPARISON: 03/22/24 HISTORY: Status post RIGHT boxer's fracture ACUTE FINDINGS: Stable alignment. Healing fracture. DEGENERATIVE CHANGE: Unremarkable SOFT TISSUE FINDINGS: Unremarkable JOINT EFFUSION: None POSTOP CHANGES: None BONY MINERALIZATION: Adequate XR/XR hand RT min 3V* IMPRESSION: Healing fracture Impression dictated by: Cayden Ramon M.D.04/25/2024 5:22 PM Dictation Location: [place] [address] Transcribed By: [facility] 04/25/24 172 Dictated By: Cayden Ramon DO 04/25/24 1721 Signed By: 04/25/24 1722 Normal [facility] ED Clinical Summaryon 2023 ED Clinical Summary ED Clinical Summary [address] [address] ED Clinical Summary Person Information Name: ASHLEY MOSER [place] Age: 28 Years : 1995 Sex: Female Language: Palestinian PCP: NONE, XXXX Marital Status: Single Visit Id: Visit Reason: Hand pain-swelling; Hand injury - Minor; LT HAND INJURY Speciality: Acuity: 4 Enc Type: Emergency Med Service: Emergency Arrival: 03/22/2024 16:09:30 Discharge: 03/22/2024 17:47:55 LOS: 000 01:38 Checkin: 03/22/2024 16:09:30 Checkout: 03/22/2024 17:47:55 Dispo Type: Home (Routine DC) EVENTS: Event Name Event Status Request Date/Time Start Date/Time Complete Date/Time Arrive Complete 03/22/2024 16:09:30 03/22/2024 16:09:30 03/22/2024 16:09:30 Document Home Meds Request 03/22/2024 16:09:30 Triage Complete 03/22/2024 16:09:30 03/22/2024 16:23:49 03/22/2024 16:23:49 Bed Assign Complete 03/22/2024 16:16:11 03/22/2024 16:16:11 03/22/2024 16:16:11 Dr Exam Complete 03/22/2024 16:16:11 03/22/2024 16:18:24 03/22/2024 16:18:24 RN Exam Complete 03/22/2024 16:16:11 03/22/2024 16:28:15 03/22/2024 16:28:15 Registration Complete 03/22/2024 16:18:24 03/22/2024 16:33:17 03/22/2024 16:33:17 Dr Exam Complete 03/22/2024 16:19:14 03/22/2024 16:19:14 03/22/2024 16:19:14 Isolation Screening Request 03/22/2024 16:23:50 Reg Complete Request 03/22/2024 16:33:17 Reg Bed Request Complete 03/22/2024 16:33:17 03/22/2024 16:33:17 03/22/2024 16:33:17 X-Ray Complete 03/22/2024 16:37:34 03/22/2024 16:38:25 03/22/2024 16:44:50 Wet Read Request 03/22/2024 16:44:50 Discharge Complete 03/22/2024 17:35:28 03/22/2024 17:48:00 03/22/2024 17:48:00 Patient Care Request 03/22/2024 17:35:45 Transfer Complete 03/22/2024 17:48:00 03/22/2024 17:48:00 03/22/2024 17:48:00 ADDRESS: [address] [place] [id number] PHYS DOC NOTES: MEDICAL INFORMATION: Prescriptions Given: New Medications [id number], [address], [place] [id number], [phone] tramadol (traMADOL 50 mg Tab) 1 Tablets By Mouth every 6 hours as needed for pain for 3 Days. Refills: 0. PATIENT EDUCATION INFORMATION: Instructions: Cast or Splint Care, Adult; Boxer's Fracture Follow up: With: Address: When: Eleuterio Llanos [address] [place], [place] [id number] Business (1) In 3 days 03/25/2024 DIAGNOSIS: 1:Fracture of metacarpal bone of right hand; 2:Hand contusion Normal [facility] ED Note-Physicianon 03-22-20 ED Note-Physician ED Note-Physician Basic Information Time Seen: Kajal Alex PA-C 03/22/2024 16:18 Chief Complaint Pt presents to ED with complaints of right hand injury x2 days ago History of Present Illness 28-year-old female presents to the ER complaining of right hand pain. Patient stated 2 days ago she struck a wall with a closed fist out of anger. Has been in pain, swelling, bruising of her hand ever since. Unable to make a fist now secondary to pain in her hand. No other pain or injuries. Review of Systems All organ systems are reviewed. Pertinent positive and negative findings as mentioned in the HPI. Physical Exam Vitals & Measurements T: 36.5 ?C(Oral) HR: 75(Peripheral) RR: 18 BP: 124/82 SpO2: 99% HT: 165 cm WT: 89 kg BMI: 32.69 GENERAL APPEARANCE: Well developed, well nourished, alert and cooperative, and appears to be in no acute distress. HEAD: normocephalic, atraumatic EYES: PERRL, EOMI. Vision is grossly intact. EARS: External auditory canals clear, hearing grossly intact. NOSE: No nasal discharge. THROAT: Oral cavity and pharynx normal. Oral mucosa moist. MUSCULOSKELETAL: Adequately aligned spine. PROM intact spine and extremities. Patient with evolving ecchymosis, edema, tenderness over the fourth and fifth metacarpal region on her right hand. Radial 2+. Cap refill less than 3 seconds. No other outward evidence of trauma. Passive range of motion and active range of motion intact all other extremities out difficulty. NEUROLOGICAL: CN grossly intact. Strength and sensation symmetric and intact throughout. SKIN: Skin normal color, texture and turgor with no lesions or eruptions. Assessment/Plan 1. Fracture of metacarpal bone of right hand (S62.309A: Unspecified fracture of unspecified metacarpal bone, initial encounter for closed fracture) Ordered: tramadol, 50 mg = 1 tab(s), Oral, q6hr, PRN for pain, X 3 day(s), # 12 tab(s), Refills(s) 0, Pharmacy: [facility] #[id number], 165, cm, 03/22/24 16:23:00 EDT, Height/Length Dosing, 89, kg, 03/22/24 16:23:00 EDT, Weight Dosing 2. Hand contusion (S60.229A: Contusion of unspecified hand, initial encounter) Orders: Sling Apply XR Hand 3+ Views Right 28-year-old female presents here with complaints of hand pain after striking a wall 2 days ago. In the ER patient is afebrile, vital signs are stable, no acute distress. Patient does have evidence of a distal fifth metacarpal fracture of the right hand. Patient was placed in Ortho-Glass ulnar gutter splint, given instructions to follow-up with orthopedics. She is to return to the ER with any new or worsening symptoms. Patient voices understanding and is agreeable to plan Disposition Plan Patient Discharge Condition Improved, stable Discharge Disposition To home Discharge Prescription List Prescriptions traMADOL 50 mg Tab, 50 mg= 1 tab(s), Oral, q6hr, PRN Follow-up With When Contact Information Eleuterio Llanos In 3 days 03/25/2024 EDT [address] [place] [address]- [facility] (1) Additional Instructions: Patient Education Cast or Splint Care, Adult Boxer's Fracture Attestation Patient was treated and evaluated by the Physician Baker Apprentice. The attending physician was in the Emergency Department at all times and supervised care. The case was discussed with the attending physician and diagnostics were reviewed as needed. Problem List/Past Medical History Ongoing Smoker Historical No qualifying data Medications Inpatient No active inpatient medications Home traMADOL 50 mg Tab, 50 mg= 1 tab(s), Oral, q6hr, PRN Allergies No Known Medication Allergies Social History Alcohol - Denies Alcohol Use, 03/22/2024 Substance Abuse - High Risk, 03/22/2024 Current, Marijuana, 03/22/2024 Tobacco - High Risk, 03/22/2024 Current vaping or e-cigarette use Smokeless Tobacco Use:. Vaping, 03/22/2024 Lab Results No qualifying data available. Diagnostic Results XR Hand 3+ Views Right 03/22/24 16:56:25 IMPRESSION: FRACTURE OF THE RIGHT FIFTH METACARPAL BONE DISTALLY. CLINICAL HISTORY: Pain, Traumatic. COMMENT:3 views. There is a fracture of the neck of the fifth metacarpal bone, with minimal cortical deformity. There is very minimal impaction, and there is no significant displacement associated with the fracture. The other bones of the right hand are unremarkable. There is no dislocation. Ordering Provider: Kajal Alex Signed By: Edmond Taylor M.D. 03/22/24 16:44:50 Radiation Dose: Ka,r in mGy = na DAP = na Signed By: Edmond Taylor M.D. [facility] Comment on above: Result Comment: Electronically Signed By : Kajal Alex PA-C\.br\Date and Time Signed: 03/22/24 18:26 EDT\.br\Electronically Co-Signed By: Nicholas Edgar M.D.\.br\Date and Time Co-Signed: 03/22/24 18:42 EDT ED Patient Summaryon 024 ED Patient Summary ED Patient Summary [address] [address] Patient Discharge Instructions Person Information Name: ASHLEY MOSER Age: 28 Years Arrival Date: 03/22/2024 16:09:30 Discharge Diagnosis: 1:Fracture of metacarpal bone of right hand; 2:Hand contusion Primary Care Physician: EJN, XXXX Provider Information Primary Provider: Nicholas Edgar M.D. Advanced Whipper:Kajal Alex PA-C The exam and treatment you received in the Emergency Department were for an urgent problem and are not intended as complete care. It is important that you follow up with a doctor, nurse practitioner, or physician?s ice cream freezer assistant for ongoing care. If your symptoms become worse or you do not improve as expected and you are unable to reach your usual health care provider, you should return to the Emergency Department. We are available 24 hours a day. ASHLEY MOSER has been given the following list of patient education materials, prescriptions and follow-up instructions: Follow-up Instructions: With: Address: When: Eleuterio Viet [address] [place] [address] [facility] () In 3 days 03/25/2024 In the event that this physician does not participate in your insurance network, please consult with your insurance company to find a nearby participating provider. Patient Education Materials: Cast or Splint Care, Adult; Boxer's Fracture A MESSAGE TO ALL PATIENTS REGARDING OPIOIDS PRESCRIPTION OPIOIDS: WHAT YOU NEED TO KNOW Prescription opioids can be used to help relieve cbgmenhy-qp-sbjlen pain and are often prescribed following a surgery or injury, or for certain health conditions. These medications can be an important part of the treatment but also come with serious risks. It is important to work with your healthcare provider to make sure you are getting the safest, most effective care. WHAT ARE THE RISKS AND SIDE EFFECTS OF OPIOID USE? Prescription opioids carry serious risks of addiction and overdose, especially with prolonged use. An opioid overdose, often marked by slowed breathing, can cause sudden . The use of prescription opioids can have a number of side effects as well, even when taken as directed: ? Tolerance?meaning you might need to take more of the medication for the same pain relief ? Physical dependence?meaning you have symptoms of withdrawal when a medication is stopped ? Increased sensitivity to pain ? Constipation ? Nausea, vomiting, and dry mouth ? Sleepiness and dizziness ? Confusion ? Depression ? Low levels of testosterone that can result in lower sex drive, energy, and strength ? Itching and sweating RISKS ARE GREATER WITH: ? History of drug misuse, substance use disorder, or overdose ? Mental health conditions (such as depression or anxiety) ? Sleep apnea ? Older age (65 years and older) ? Avoid alcohol while taking prescription opioids. Also, unless specifically advised by your health care provider, medications to avoid include: ? Benzodiazepines (such as Xanax or Valium) ? Muscle relaxants (such as Soma or Flexeril) ? Hypnotics (such as Ambien or Lunesta) ? Other prescription opioids KNOW YOUR OPTIONS Talk to your health care provider about ways to manage your pain that don?t involve prescription opioids. Some of these options may actually work better and have fewer risks and side effects. Options may include: ? Pain relievers such as acetaminophen, ibuprofen, and naproxen ? Some medication that are also used for depression or seizures ? Physical therapy and exercise ? Cognitive behavioral therapy, a psychological, goal-directed approach, in which patients learn how to modify physical, behavioral, and emotional triggers of pain and stress. IF YOU ARE PRESCRIBED OPIOIDS FOR PAIN: ? Never take opioids in greater amounts or more often than prescribed. ? Follow up with your primary health care provider. o Work together to create a plan on how to manage your pain. o Talk about ways to help manage your pain that don?t involve prescription opioids. o Talk about any and all concerns and side effects. ? Help prevent misuse and abuse o Never sell or share prescription opioids. o Never use another person?s prescription opioids. ? Store prescription opioids in a secure place and out of reach of others (this may include visitors, children, friends, and family). ? Safely dispose of unused prescription opioids: Find your community drug take-back program or your pharmacy mail-back program, or flush them down the toilet, following guidance from the Food and Drug Administration (www.fda.gov/Drugs/Res ourcesForYou). ? Visit www.cdc.gov/drugoverdo se to learn about the risks of opioids abuse and overdose. ? If you believe you may be struggling with addiction, tell your health rn patient care and ask for bonnie (more content not included)... Normal [facility] XR Hand 3+ Views Righton XR Hand 3+ Views Right Exam Date/Time: 03/22/2024 16:44 EDT Reason for Exam: Pain, Traumatic Report IMPRESSION: FRACTURE OF THE RIGHT FIFTH METACARPAL BONE DISTALLY. CLINICAL HISTORY: Pain, Traumatic. COMMENT:3 views. There is a fracture of the neck of the fifth metacarpal bone, with minimal cortical deformity. There is very minimal impaction, and there is no significant displacement associated with the fracture. The other bones of the right hand are unremarkable. There is no dislocation. Ordering Provider: Kajal Alex FINAL REPORT Dictated: 03/22/2024 4:53 pm Edmond Taylor M.D. Signed (Electronic Signature): 03/22/2024 4:53 pm Signed by: Edmond Taylor M.D. Transcribed by: EDOUARD Technologist: PILAR Technical Comments Radiation Dose: Ka,r in mGy = na DAP = na [facility] Vital Signs Date Time Vital Sign Value Performing Clinician Facility 03-28-2024 07:56-0400 Body height 165.[address] [facility] 03-28-2024 07:56-0400 Body mass index (BMI) [Ratio] 32.4 kg/m2 [facility] 03-28-2024 07:56-0400 Body weight 88.[address] [facility] 03-22-2024 16:20-0400 Body temperature 97.7 [degF] [facility] 03-22-2024 16:20-0400 Diastolic blood pressure 82 mm[Hg] [facility] 03-22-2024 16:20-0400 Heart rate 75 /[facility]-22-[facility]24 16:20-0400 Respiratory rate 18 /min [facility] 03-22-2024 16:20-0400 SaO2% (BldA) [Mass fraction] 99 % [facility] 03-22-2024 16:20-0400 Systolic blood pressure 124 mm[Hg] [facility] 08-09-2022 14:00-0500 Body height 165.1 cm Courtney Gibbons Other [employer] [facility] [employer] Other 08-09-2022 14:00-0500 Body mass index (BMI) [Ratio] 27.95 kg/m2 Courtney Gibbons Other [employer] Other 08-09-2022 14:00-0500 Body temperature 97.7 [degF] Courtney Gibbons Other [employer] Other 08-09-2022 14:00-0500 Body weight 76.2 kg Courtney Gibbons Other [employer] Other 08-09-2022 14:00-0500 Diastolic blood pressure 72 mm[Hg] Courtney Gibbons Other [employer] Other 08-09-2022 14:00-0500 Respiratory rate 18 /min Courtney Gibbons Other [employer] Other 08-09-2022 14:00-0500 SaO2% (BldA) [Mass fraction] 98 % Courtney Gibbons Other [employer] Other 08-09-2022 14:00-0500 Systolic blood pressure 117 mm[Hg] Courtney Gibbons Other [employer] Other 07-19-2022 16:00-0500 Body height 165.1 cm Courtney Gibbons Other [employer] Other 07-19-2022 16:00-0500 Body mass index (BMI) [Ratio] 27.95 kg/m2 Courtney Gibbons Other [employer] Other 07-19-2022 16:00-0500 Body temperature 97.7 [degF] Courtney Gibbons Other [employer] Other 07-19-2022 16:00-0500 Body weight 76.2 kg Courtney Gibbons Other [employer] Other 07-19-2022 16:00-0500 Diastolic blood pressure 68 mm[Hg] Courtney Gibbons Other [employer] Other 07-19-2022 16:00-0500 Respiratory rate 18 /min Courtney Gibbons Other [employer] Other 07-19-2022 16:00-0500 SaO2% (BldA) [Mass fraction] 99 % Courtney Gibbons Other [employer] Other 07-19-2022 16:00-0500 Systolic blood pressure 127 mm[Hg] Courtney Schmidtault Other [employer] Other 06-21-2022 12:30-0500 Body height 165.1 cm Courtney Schmidtault Other [employer] Other 06-21-2022 12:30-0500 Body mass index (BMI) [Ratio] 27.79 kg/m2 Courtney Gibbons Other [employer] Other 06-21-2022 12:30-0500 Body temperature 97.1 [degF] Courtney Gibbons Other [employer] Other 06-21-2022 12:30-0500 Body weight 75.75 kg Courtney Gibbons Other [employer] Other 06-21-2022 12:30-0500 Diastolic blood pressure 84 mm[Hg] Courtney Gibbons Other [employer] Other 06-21-2022 12:30-0500 Respiratory rate 18 /min Courtney Gibbons Other [employer] Other 06-21-2022 12:30-0500 SaO2% (BldA) [Mass fraction] 97 % Courtney Gibbons Other [employer] Other 06-21-2022 12:30-0500 Systolic blood pressure 131 mm[Hg] Courtney Gibbons Other [employer] Other 06-04-2022 14:35-0500 Body height 165.1 cm Kina Murcia Other [employer] Other 06-04-2022 14:35-0500 Body mass index (BMI) [Ratio] 28.12 kg/m2 Kina Murcia Other [employer] Other 06-04-2022 14:35-0500 Body temperature 98 [degF] Kina Murcia Other [employer] Other 06-04-2022 14:35-0500 Body weight 76.66 kg Kina Murcia Other [employer] Other 06-04-2022 14:35-0500 Diastolic blood pressure 81 mm[Hg] Kina Murcia Other [employer] Other 06-04-2022 14:35-0500 Respiratory rate 18 /min Kina Murcia Other [employer] Other 06-04-2022 14:35-0500 SaO2% (BldA) [Mass fraction] 100 % Kina Murcia Other [employer] Other 06-04-2022 14:35-0500 Systolic blood pressure 125 mm[Hg] Kina Murcia Other [employer] Other 03-16-2022 14:15-0400 Body height 165.1 cm Cricket Desir Other [employer] Other 03-16-2022 14:15-0400 Body mass index (BMI) [Ratio] 29.12 kg/m2 Cricket Desir Other [employer] Other 03-16-2022 14:15-0400 Body temperature 99.1 [degF] Cricket Desir Other [employer] Other 03-16-2022 14:15-0400 Body weight 79.38 kg Cricket Desir Other [employer] Other 03-16-2022 14:15-0400 Respiratory rate 18 /min Cricket Desir Other [employer] Other 03-16-2022 14:15-0400 SaO2% (BldA) [Mass fraction] 97 % Cricket Desir Other [employer] Other Encounters Encounter Date Encounter Type Care Provider Facility Start: 04-25-2024 End: 04-25-2024 ambulatory PHYSICIAN NO [facility] Work Phone: Start: 04-25-2024 End: 04-25-2024 Patient encounter procedure PHYSICIAN NO [facility] Work Phone: Start: 04-25-2024 End: 04-25-2024 Patient encounter procedure PHYSICIAN NO [facility] Start: 04-25-2024 End: 04-25-2024 ambulatory Yon Finch Facility:[facility] Start: 03-28-2024 End: 03-28-2024 ambulatory [facility] Work Phone: Start: 03-28-2024 End: 03-28-2024 Patient encounter procedure [facility] Work Phone: Start: 03-22-2024 End: 03-22-2024 Emergency department patient visit Getachewtimothy Mariano Herve [facility] Start: 11-06-2022 End: 11-06-[address] NONE LISTED REQUEST Facility: Start: 08-09-2022 End: 08-09-2022 ambulatory Courtney Gibbons Other [facility] [employer] [facility] Other Start: 08-09-2022 Office outpatient visit 15 minutes Courtney Gibbons [facility] Start: 07-19-2022 End: 07-19-2022 ambulatory Courtney Gibbons Other [facility] Other Start: 07-19-2022 Office outpatient visit 15 minutes Courtney Gibbons [facility] Start: 06-21-2022 End: 06-21-2022 ambulatory Courtney Gibbons Other [facility] [employer] Other Start: 06-21-2022 Office outpatient visit 15 minutes Courtney Gibbons [facility] Start: 06-04-2022 End: 06-04-2022 ambulatory Kina Murcia Other [facility] [employer] [facility] Other Start: 06-04-2022 Office outpatient visit 15 minutes Kina Murcia [facility] Start: 03-16-2022 End: 03-16-2022 ambulatory Cricket Shirazjenni Other [facility] [employer] [facility] Other Start: 03-16-2022 Office outpatient visit 15 minutes Cricket Shirazjenni [facility] Start: 11-23-2021 End: 11-23-[address] NONE LISTED REQUEST Facility: Procedures Date Procedure Procedure Detail Performing Clinician Start: 04-25-2024 Plain X-ray of right hand PHYSICIAN NO FAMILY Plan of Treatment Date Care Activity Detail Author Start: 04-25-2024 Plain X-ray of right hand XR hand RT min 3V* [facility] Start: 04-25-2024 XR Hand - right GE 3 Views [facility] Payers Date Payer Category Payer Medicaid [id number] . [id number] 1996 Unknown [id number] 1996 Unknown [id number] 1996 Unknown [id number] 1958 Self-pay Unknown [id number] Social History Date Type Detail Facility Unknown if ever smoked [facility] [employer] [facility] [employer] Other Sex Assigned At [facility] Tobacco Current vaping o r e-cigarette use Smokeless Tobacco Use:. Vaping [facility] Tobacco smoking status No Smoking Status Entered [facility] Start: 1995 Sex Assigned At Female F [facility] Functional Status Date Assessment Result Facility 03-22-2024 Functional Status N/A [facility] Clinical Notes 03-16-2022 to 03-22-2024 Note Date & Type Note Facility 03-22-2024 Hospital Discharg e instructions Patient Education 03/22/2024 17:48:00 Cast or Splint Care, Adult Cast or Splint Care, Adult Casts and splints are supports that are worn to protect broken bones and other injuries. A cast or splint may hold a bone still and in the correct position while it heals. Casts and splints may also help with pain, swelling, and muscle spasms. A cast is a hardened support that is usually made of fiberglass or plaster. It is custom-fit to the body and offers more protection than a splint. Most casts cannot be taken off and put back on. A splint is a type of soft support that is usually made from cloth and elastic. It can be adjusted or taken off as needed. Often, when a bone is broken, a splint is put on until the swelling goes down, and then the splint is replaced by a cast. You may need a cast or a splint if you: Have a broken bone. Have a soft-tissue injury. Need to keep an injured body part from moving (keep it immobile) after surgery. What are the risks? In some cases, wearing a cast or splint can cause a reduced blood supply to the wrist or hand or to the foot and toes. This can happen if there is a lot of swelling or if the cast or splint is too tight. Limited blood supply results in a condition called compartment syndrome and can cause permanent damage. Symptoms include: Pain that is getting worse. Numbness and tingling. Changes in skin color, including paleness or a bluish color. Cold fingers or toes. Other complications of wearing a cast or splint can include: Skin irritation that can cause itching, rash, skin sores, or skin infection. Limb stiffness or weakness. How to care for a nonremovable cast or splint Do not put pressure on any part of the cast or splint until it is fully hardened. This may take several hours. Check the skin around the cast or splint every day. Tell your health care provider about any concerns. Do not stick anything inside the cast or splint to scratch your skin. Doing that increases your risk of infection. You may put lotion on dry skin around the edges of the cast or splint. Do not put lotion on the skin underneath the cast or splint. Keep the cast or splint clean and dry. How to care for a removable splint Wear the splint as told by your health care provider. Remove it only as told by your health care provider. Check the skin around the splint every day. Tell your health care provider about any concerns. Loosen the splint if your fingers tingle, become numb, or turn cold and blue. Keep the splint clean and dry. Clean your splint as told by your health care provider. Use mild soap and water and let it air-dry. Do not use heat on your splint. Follow these instructions at home: Bathing Do not take baths, swim, or use a hot tub until your health care provider approves. Ask your health care provider if you may take showers. You may only be allowed to take sponge baths. If your cast or splint is not waterproof: ?Do not let it get wet. ?Cover it with a watertight covering when you take a bath or shower. Managing pain, stiffness, and swelling If directed, put ice on the affected area. To do this: ?If you have a removable cast or splint, remove it as told by your health care provider. ?Put ice in a plastic bag. ?Place a towel between your skin and the bag or between your cast and the bag. ?Leave the ice on for 20 minutes, 2 3 times a day. ?Remove the ice if your skin turns bright red. This is very important. If you cannot feel pain, heat, or cold, you have a greater risk of damage to the area. Move your fingers or toes often to reduce stiffness and swelling. Raise (elevate) the injured area above the level of your heart while you are sitting or lying down. Safety Do not use the injured limb to support your body weight until your health care provider says that you can. Use crutches or other assistive devices as told by your health care provider. Ask your health care provider when it is safe to drive if you have a cast or splint on part of your body. General instructions Take ktox-gct-ygwxiev and prescription medicines only as told by your health care provider. Return to your normal activities as told by your health care provider. Ask your health care provider what activities are safe for you. Keep all follow-up visits. This is important. Contact a health care provider if: The skin around the cast or splint gets red or raw. The skin under the cast is extremely itchy or painful. Your cast or splint: ?Gets damaged. ?Feels very uncomfortable. ?Is too tight or too loose. Your cast becomes wet or develops a soft spot or area. You notice a bad smell coming from under your cast. You get an object stuck under your cast. There is fluid leaking through the cast. Get help right away if: You develop any symptoms of compartment syndrome, such as: ?Severe pain or pressure under the cast. ?Numbness, tingling, coldness, or pale or bluish skin. The part of your body above or below the cast is swollen and discolored. You cannot feel or move your fingers or toes. You have trouble breathing or shortness of breath. You have chest pain. Your pain gets worse. These symptoms may represent a serious problem that is an emergency. Do not wait to see if the symptoms will go away. Get medical help right away. Call your local emergency services (911 in the [place] Do not drive yourself to the hospital. Summary Casts and splints are worn to protect broken bones and other injuries. Casts and splints should remain clean and dry. Remove your cast or splint only as told by your health care provider. Get help right away if your pain gets worse, or if you have numbness, tingling, or skin that turns cold, blue, or discolored. This information is not intended to replace advice given to you by your health care provider. Make sure you discuss any questions you have with your health care provider. Document Revised: 01/05/2022 Document Reviewed: 01/05/2022 [employer] Patient Education 2023 [employer]. 03/22/2024 17:48:00 Boxer's Fracture Boxer's Fracture A boxer's fracture is a break (fracture) in the bone that connects your little finger to your wrist (fifth metacarpal). This type of fracture usually happens at the end of the bone, closest to the little finger. The knuckle is often pushed down toward the wrist by the impact. What are the causes? This condition may be caused by: Hitting an object with a clenched fist. A hard, direct hit to the hand. An injury that crushes the hand. What increases the risk? You are more likely to develop this condition if: You are in a fistfight. You have certain bone diseases, such as osteoporosis. What are the signs or symptoms? Symptoms of a boxer's fracture develop immediately after the injury. They may include: Pain, which may get worse when your little finger is moved or your hand is touched. Bruising around the knuckle. Swelling of your hand. Your little finger being in an abnormal position. The knuckle on the finger looking indented. Not being able to move the finger. A shortened finger. How is this diagnosed? This injury may be diagnosed based on: Your symptoms. Your health care provider may ask about any recent hand injury. A physical exam. X-rays to confirm the diagnosis. How is this treated? Treatment for this condition depends on how severe the injury is. Possible treatments include: Closed reduction. This treatment may be used if your bone is stable. The health care provider uses pressure and rotation to move the bones back into place without cutting your skin open. You would need to wear a cast or splint to help keep your bones in place while they heal. Open reduction with internal fixation (ORIF). This may be needed if your fracture is far out of place or goes through the joint surface of the bone or through the skin. This treatment involves open surgery to move your bones back into the right position. Screws, wires, or plates may be used to make the fracture stable. You may also need to: Wear a cast or a splint for several weeks. Have follow-up X-rays to make sure that the bone is healing well and staying in position. Have physical therapy after your cast or splint is removed. This will help you regain full movement (range of motion) and strength in your hand. Follow these instructions at home: Medicines Take wwer-abw-tpbgzvi and prescription medicines only as told by your health care provider. Ask your health care provider if the medicine prescribed to you: ?Requires you to avoid driving or using machinery. ?Can cause constipation. You may need to take these actions to prevent or treat constipation: ?Drink enough fluid to keep your urine pale yellow. ?Take cmmw-dmg-rnolisa or prescription medicines. ?Eat foods that are high in fiber, such as beans, whole grains, and fresh fruits and vegetables. ?Limit foods that are high in fat and processed sugars, such as fried or sweet foods. If you have a splint: Wear the splint as told by your health care provider. Remove it only as told by your health care provider. Check the skin around the splint every day. Tell your health care provider about any concerns. Loosen the splint if your fingers tingle, become numb, or turn cold and blue. Keep the splint clean and dry. If you have a cast: Do not put pressure on any part of the cast until it is fully hardened. This may take several hours. Do not stick anything inside the cast to scratch your skin. Doing that increases your risk of infection. Check the skin around the cast every day. Tell your health care provider about any concerns. You may put lotion on dry skin around the edges of the cast. Do not put lotion on the skin underneath the cast. Keep the cast clean and dry. Bathing If the splint or cast is not waterproof: Do not let it get wet. Cover it with a watertight covering when you take a bath or shower. Managing pain, stiffness, and swelling If directed, put ice on the injured area. To do this: ?If you have a removable splint, remove it as told by your health care provider. ?Put ice in a plastic bag. ?Place a towel between your skin and the bag or between your cast and the bag. ?Leave the ice on for 20 minutes, 2 3 times a day. ?Remove the ice if your skin turns bright red. This is very important. If you cannot feel pain, heat, or cold, you have a greater risk of damage to the area. Move your fingers often to reduce stiffness and swelling. Raise (elevate) the injured hand above the level of your heart while you are sitting or lying down. General instructions Ask your health care provider when it is safe to drive if you have a cast or splint on your hand. Do not use any products that contain nicotine or tobacco. These products include cigarettes, chewing tobacco, and vaping devices, such as e-cigarettes. These can delay bone healing. If you need help quitting, ask your health care provider. Return to your normal activities as told by your health care provider. Ask your health care provider what activities are safe for you. Keep all follow-up visits. This is important. Contact a health care provider if: Your pain is getting worse. You have more redness, swelling, or pain in the injured area. You have a fever. Your cast or splint feels too tight or too loose. Your cast is coming apart or breaking. You develop a rash. Get help right away if: You have severe pain. Your skin or nails on your injured hand turn blue or oaeks even after you loosen your splint. Your injured hand feels cold or becomes numb even after you loosen your splint. Summary A boxer's fracture is a break in the bone that connects your little finger to your wrist. You may have X-rays to confirm the diagnosis. Treatment depends on how severe your injury is and may include wearing a cast or splint or having surgery. This information is not intended to replace advice given to you by your health care provider. Make sure you discuss any questions you have with your health care provider. Document Revised: 04/15/2021 Document Reviewed: 04/15/2021 [employer] Patient Education 2023 [employer]IDEEN. Follow Up Care 03/22/2024 16:14:30 With:Eleuterio Llanos Address: [address] [place] [address] Business (1) When:03/25/2024 17:35:25 [facility] 03-22-2024 Note ED Patient Education Note Orthopedics Cast or Splint Care, Adult Casts and splints are supports that are worn to protect broken bones and other injuries. A cast or splint may hold a bone still and in the correct position while it heals. Casts and splints may also help with pain, swelling, and muscle spasms. A cast is a hardened support that is usually made of fiberglass or plaster. It is custom-fit to the body and offers more protection than a splint. Most casts cannot be taken off and put back on. A splint is a type of soft support that is usually made from cloth and elastic. It can be adjusted or taken off as needed. Often, when a bone is broken, a splint is put on until the swelling goes down, and then the splint is replaced by a cast. You may need a cast or a splint if you: ? Have a broken bone. ? Have a soft-tissue injury. ? Need to keep an injured body part from moving (keep it immobile) after surgery. What are the risks? In some cases, wearing a cast or splint can cause a reduced blood supply to the wrist or hand or to the foot and toes. This can happen if there is a lot of swelling or if the cast or splint is too tight. Limited blood supply results in a condition called compartment syndrome and can cause permanent damage. Symptoms include: ? Pain that is getting worse. ? Numbness and tingling. ? Changes in skin color, including paleness or a bluish color. ? Cold fingers or toes. Other complications of wearing a cast or splint can include: ? Skin irritation that can cause itching, rash, skin sores, or skin infection. ? Limb stiffness or weakness. How to care for a nonremovable cast or splint ? Do not put pressure on any part of the cast or splint until it is fully hardened. This may take several hours. ? Check the skin around the cast or splint every day. Tell your health care provider about any concerns. ? Do not stick anything inside the cast or splint to scratch your skin. Doing that increases your risk of infection. ? You may put lotion on dry skin around the edges of the cast or splint. Do not put lotion on the skin underneath the cast or splint. ? Keep the cast or splint clean and dry. How to care for a removable splint ? Wear the splint as told by your health care provider. Remove it only as told by your health care provider. ? Check the skin around the splint every day. Tell your health care provider about any concerns. ? Loosen the splint if your fingers tingle, become numb, or turn cold and blue. ? Keep the splint clean and dry. Clean your splint as told by your health care provider. Use mild soap and water and let it air-dry. Do not use heat on your splint. Follow these instructions at home: Bathing ? Do not take baths, swim, or use a hot tub until your health care provider approves. Ask your health care provider if you may take showers. You may only be allowed to take sponge baths. ? If your cast or splint is not waterproof: ? Do not let it get wet. ? Cover it with a watertight covering when you take a bath or shower. Managing pain, stiffness, and swelling ? If directed, put ice on the affected area. To do this: ? If you have a removable cast or splint, remove it as told by your health care provider. ? Put ice in a plastic bag. ? Place a towel between your skin and the bag or between your cast and the bag. ? Leave the ice on for 20 minutes, 2?3 times a day. ? Remove the ice if your skin turns bright red. This is very important. If you cannot feel pain, heat, or cold, you have a greater risk of damage to the area. ? Move your fingers or toes often to reduce stiffness and swelling. ? Raise (elevate) the injured area above the level of your heart while you are sitting or lying down. Safety ? Do not use the injured limb to support your body weight until your health care provider says that you can. Use crutches or other assistive devices as told by your health care provider. ? Ask your health care provider when it is safe to drive if you have a cast or splint on part of your body. General instructions ? Take amvl-ubs-ndxxxxi and prescription medicines only as told by your health care provider. ? Return to your normal activities as told by your health care provider. Ask your health care provider what activities are safe for you. ? Keep all follow-up visits. This is important. Contact a health care provider if: ? The skin around the cast or splint gets red or raw. ? The skin under the cast is extremely itchy or painful. ? Your cast or splint: ? Gets damaged. ? Feels very uncomfortable. ? Is too tight or too loose. ? Your cast becomes wet or develops a soft spot or area. ? You notice a bad smell coming from under your cast. ? You get an object stuck under your cast. ? There is fluid leaking through the cast. Get help right away if: ? You develop any symptoms of compartment syndrome, such as: ? Se (more content not included)... [facility] 03-22-2024 Evaluation + Plan note Extrac lety from: Title:ED Note Author:Kajal Alex PA-C Eduardo e:03/22/24 1. Fracture of metacarpal ignacio ne of right hand (S62.309A: Unspecified fracture of unspecified metacarpal bone, initial encounter for closed fracture) Ordered: tramadol, 50 mg = 1 tab(s), Oral, q6hr, PRN for pain, X 3 day(s), # 12 tab(s), Refills(s) 0, Pharmacy: [facility]/pharmacy #[id number], 165, cm, 03/22/24 16:23:00 EDT, Height/Length Dosing, 89, kg, 03/22/24 16:23:00 EDT, Weight Dosing 2. Hand contusion (S60.229A: Contusion of unspecified hand, initial encounter) Orders: Sling Apply XR Hand 3+ Views Right 28-year-old female presents here with complaints of hand pain after striking a wall 2 days ago. In the ER patient is afebrile, vital signs are stable, no acute distress. Patient does have evidence of a distal fifth metacarpal fracture of the right hand. Patient was placed in Ortho-Glass ulnar gutter splint, given instructions to follow-up with orthopedics. She is to return to the ER with any new or worsening symptoms. Patient voices understanding and is agreeable to plan [facility] 01-16-2023 Evaluation note* Encounter Date Diagnosis Assessment Notes Treatment Notes Treatment Clinical Notes Jul, MIRA (generalized anxiety disorder) (ICD-10 - F41.1) increased medication as discussed. Jul, PTSD (post-traumatic stress disorder) (ICD-10 - F43.10) Start taking medication tonight. FOllow up in 1 month. [facility] [employer] Other 12-26-2022 Evaluation note* Encounter Date Diagnosis Assessment Notes Treatment Notes Treatment Clinical Notes Jun, MIRA (generalized anxiety disorder) (ICD-10 - F41.1) COntinue medication at this time. Jun, Gastroesophageal ref lux disease without esophagitis (ICD-10 - K21.9) Jun, PTSD (post-traumatic stress disorder) (ICD-10 - F43.10) Start this medication tonight. Follow up in 4-6 weeks to see how you are doing [employer] Other 11-28-2022 Evaluation note* Encounter Date Diagnosis Assessment Notes Treatment Notes Treatment Clinical Notes May, Gastroesophageal reflux disease without esophagitis [...] to be seen. Also always know the [facility] Emergency Number is 24 hours a day available, even on holidays there is someone you can reach out to. Also we will check other labs yearly to screen for other health issues. Please remember we are a team and your opinion is very important in all of your healthcare decisions [employer] Other 11-11-2022 Evaluation note* Encounter Date Diagnosis Assessment Notes Treatment Notes Treatment Clinical Notes May, Right otitis media, unspecified otitis [...] right ear, unspecified type (ICD-10 - H60.501) [facility] [employer] Other 08-23-2022 Evaluation note* Encounter Date Diagnosis Assessment Notes Treatment Notes Treatment Clinical Notes Feb, Contact with and (suspected) exposure [...] - J30.2) Feb, Nausea (ICD-10 - R11.0) [facility] [employer] Other Evaluation note* Diagnosis Onset Date Resolution Status Fracture of fifth metacarpal bone of right hand acute [facility] Work Phone: Evaluation note* Diagnosis Onset Date Resolution Status Fracture of fifth metacarpal bone of right hand acute Fracture of fifth metacarpal bone of right hand acute [facility] Work Phone: History general Narrative - Reported* Type Description Date Surgical History tonsillectomy [facility] [employer] [facility] Other History general Narrative - Reported* Type Description Date Medical History acid reflux Surgical History tonsillectomy [facility] [employer] Other Hospital course Narrative No data available for this section [facility] Progress note No data available for this section [facility] Summary Purpose Family History No Family History Records Found No data available for this section No Family History Records FoundNo Family History Records Found Advance Directives Advance Directive Response Recorded Date/ Time Advance Directives No November 03 7:52pm Chief Complaint and Reason for Visit Chief Complaint ER [facility] [place] RIGHT HAND F X WX Reason for Visit Fracture of fifth me tacarpal bone of right hand Chief Complaint ER [facility] [place] RIGHT HAND F X WX S62.306A - Unspecified fracture of fifth metacarpa 4 WEEKS Reason for Visit Fracture of fifth me tacarpal bone of right hand Fracture of fifth metacarpal bone of right hand Additional Source Comments REASON FOR VISIT (unrecogniz ed section and content) RED ESCAPE, N/V DIARRHEARED WRAY ESCAPE RIGHT EAR PA[facility]ST CARE, José Establish PrimaryFOLLOW UP MIRA, José AnxietyF/U MEDS, José Anxiety INFORMATION SOURCE (unrecogn ized section and content) DATE CREATED AUTHOR 11/09/2022 [facility] DATE CREATED AUTHOR AUTHOR'S ORGANIZ ATION 03/30/2024 [facility] DATE CREATED AUTHOR AUTHOR'S ORGANIZ ATION 04/27/2024 The [facility] Care Teams (unrecognized sec tion and content) Team Status: Active Member Role Status Dates PHYSICIAN NO FAMILY Primary Care Provider Active Team Status: Inactive Member Role Status Dates Yon Finch DO Attending Provider Active S tart: March 28, 2024 End: March 28, 2024 PHYSICIAN NO FAMILY Primary Care Provider Active Start: March 28, 2024 End: March 28, 2024 Goals (unrecognized section and content) Goals may be documented in a n alternate section FOR RECORDS PERTAINING TO PATIENTS WHO ARE [...] BE BASED ON THE PRIMARY CLINICAL RECORDS. [facility]. provides no warranty or guarantee of the accuracy or completeness of information in this document.
[2024-05-10] MEDS: CEFTRIAXONE 500 MG VIAL IM (11:27)
--- NOTE | 2024-05-10 11:43 | ED_ITS ---
HPI - Female Genitourinary General Chief complaint: Urogenital-Female Stated complaint: STD EXPOSURE Time Seen by Provider: 05/10/24 11:05 Source: patient Mode of arrival: walk-in Limitations: no limitations History of Present Illness HPI Narrative: The patient is coming to the ER after she been exposed to her boyfriend who had a possible STI, she did not have any symptoms but she is concerned and wants to be treated Related Data Previous Rx's ?Medication ?Instructions ?Recorded benzonatate 200 mg capsule 200 mg PO TID PRN cough #21 caps 05/18/23 omeprazole 20 mg capsule,delayed 20 mg PO DAILY #14 caps 05/18/23 release ondansetron 4 mg disintegrating 4 mg PO Q8H PRN nausea and 05/18/23 tablet vomiting 4 days #16 tabs doxycycline hyclate 100 mg tablet 100 mg PO BID 7 days #14 tabs 05/10/24 Allergies Allergy/AdvReac Type Severity Reaction Status Date / Time No Known Drug Allergies Allergy Verified 01/14/24 22:46 Review of Systems ROS Status of ROS 10 or more systems reviewed and unremark able except as noted in history and below PFSH PFSH Social History Smoking status: Current every day smoker Little interest or pleasure in doing things: not at all Feeling down, depressed, or hopeless: not at all Exam Narrative Exam Narrative: Nurses notes and vital signs reviewed and patient is not hypoxic. General: Well-appearing and in no apparent distress. Skin: Warm, dry, no pallor noted. No rash. Head: Normocephalic, atraumatic. Neck: Supple, non-tender. Eye: Pupils are equal, round and EOMI. No scleral icterus. Ears, Nose, Mouth, and Throat: TM are clear, no nasal mucosal hypertrophy. Oral mucosa is moist, no posterior oropharynx erythema, uvula is mid-line Cardiovascular: Regular Rate and Rhythm without murmur, gallop or rub. Respiratory: No accessory muscle use or respiratory distress. Lungs are clear to auscultation, no wheezing, rales or rhonchi Chest Wall: no tenderness Back: No midline thoracic or lumbar vertebral tenderness. No CVA tenderness Musculoskeletal: normal ROM, no calf or popliteal tenderness, no lower extremity edema/swelling GI: Abdomen is soft, non-distended. Normal bowel sounds. No masses appreciated. No tenderness to palpation. No rebound, guarding, or rigidity noted. Neurological: A&O x4. No cranial nerve dysfunction observed. No truncal ataxia. Moves all extremities. Sensation intact. Psychiatric: Cooperative and interactive. Normal mood and affect. Constitutional Vital Signs, click to edit/add: Last Vital Signs Temp 98.3 F 05/10/24 10:58 Pulse 88 05/10/24 10:58 Resp 18 05/10/24 10:58 BP 144/96 H 05/10/24 10:58 Pulse Ox 98 05/10/24 10:58 O2 Del Method Room Air 05/10/24 10:58 Course Vital Signs Vital signs: Vital Signs Temperature 98.3 F 05/10/24 10:58 Pulse Rate 88 05/10/24 10:58 Respiratory Rate 18 05/10/24 10:58 Blood Pressure 144/96 H 05/10/24 10:58 Pulse Oximetry 98 05/10/24 10:58 Oxygen Delivery Method Room Air 05/10/24 10:58 Temperature 98.3 F 05/10/24 10:58 Pulse Rate 88 05/10/24 10:58 Respiratory Rate 18 05/10/24 10:58 Blood Pressure 144/96 H 05/10/24 10:58 Pulse Oximetry 98 05/10/24 10:58 Oxygen Delivery Method Room Air 05/10/24 10:58 MDM - Female Genitourinary MDM Narrative Medical decision making narrative: Patient partner already been diagnosed with STI and he will be treated she will be treated for possible STI as well with the ceftriaxone and Doxy psych The patient is to follow up with primary care physician in next 2-3 days or to return to the emergency department should any of the signs or symptoms worsen or new symptoms develop. The patient agrees with the following Diagnosis and Treatment plan and the patient will be discharged home. Discharge Plan Discharge Chief Complaint: Urogenital-Female Clinical Impression: Possible exposure to STI Patient Disposition: Home, Self-Care Time of Disposition Decision: 11:42 Prescriptions / Home Meds: New doxycycline hyclate 100 mg tablet 100 mg PO BID 7 Days Qty: 14 0RF No Action ondansetron 4 mg tablet,disintegrating 4 mg PO Q8H PRN (Reason: nausea and vomiting) 4 Days Qty: 16 0RF omeprazole 20 mg capsule,delayed release(DR/EC) 20 mg PO DAILY Qty: 14 0RF benzonatate 200 mg capsule 200 mg PO TID PRN (Reason: cough) Qty: 21 0RF Print Language: Welsh Instructions: Sexually Transmitted Diseases (ED) Referrals: [facility] [Primary Care Provider] - 1 week
[2024-05-10 11:47] LABS: HCG Qualitative Urine* NEGATIVE (NEGATIVE)
[2024-05-10 11:48] LABS: Internal Control Within Normal Limits
[2024-05-13 07:07] LABS: Neisseria gonorrhoeae, NAA Negative (Negative)
== END 2024-05-10 12:08 | disposition home or self-care (01) ==
PROVIDERS: Emergency Provider Emergency Medicine
DX: Z20.2 Contact with and (suspected) exposure to infections with a predominantly sexual mode of transmission (principal); F17.200 Nicotine dependence, unspecified, uncomplicated
CPT/HCPCS: 84703; 87491; 87591; 96372; 99284; J0696